=== PATIENT | male | born 1940 | race Caucasian/White ===

== ENCOUNTER → 2016-11-16 | Outpatient (CLI) | payer BC ==
[~2016-11-16] MED LIST: ALLO100T PO; CARV12.52 PO; CARV25TA2 PO; ERGO1CAP35 PO; FURO40TA3 PO; LISI-461 PO; PSYL55.43 PO; SIMV20TA2 PO; WARF5TAB7 PO
[2016-11-16 12:06] LABS: HEMATOCRIT 34.6 % (42-52); MEAN CELL VOLUME 92.8 fL (80-100); MEAN CORPUSCULAR HEMOGLOBIN 29.5 pg (25-34); MEAN CORPUSCULAR HGB CONC 31.8 g/dl (32-36); MEAN PLATELET VOLUME 9.9 fL (7.4-10.4); PLATELET COUNT 148 K/uL (130-400); RED BLOOD COUNT 3.73 M/uL (4.7-6.1); WHITE BLOOD COUNT 6.41 K/uL (4.8-10.8)
[2016-11-16 12:34] LABS: URINE PROTIEN/CREAT RATIO 0.5 (0-0.2)
[2016-11-16 12:49] LABS: ALT/SGPT 29 U/L (12-78); AST/SGOT 14 U/L (15-37); BLOOD UREA NITROGEN 71 mg/dl (7-18); BUN/CREATININE RATIO 25.2 (10-20); CALCIUM 9.1 mg/dl (8.5-10.1); CARBON DIOXIDE 23 mmol/L (21-32); CHLORIDE 109 mmol/L (98-107); GLUCOSE 96 mg/dl (70-99); POTASSIUM 4.8 mmol/L (3.5-5.1); SODIUM 139 mmol/L (136-145); URIC ACID 7.1 mg/dl (2.6-7.2)
[2016-11-16 12:51] LABS: ALB/GLOB RATIO 0.8 (0.9-2); ALKALINE PHOSPHATASE 69 U/L (45-117); PHOSPHORUS 3.7 mg/dl (2.5-4.9)
[2016-11-16 13:25] LABS: URINE APPEARANCE TURBID (CLEAR); URINE BILIRUBIN NEG (NEG); URINE COLOR YELLOW; URINE NITRITE POS (NEG); URINE PH 5.5 (4.5-7.5); URINE SPECIFIC GRAVITY 1.014 (1.000-1.030); UROBILINOGEN NEG (NEG)
[2016-11-16 13:28] LABS: MANUAL MICROSCOPIC REQUIRED? NO; REVIEW REQ? NO
== END | disposition home or self-care (01) ==
LOC: C.LAB1850 10:53
PROVIDERS: ATTEND Internal Medicine Nephrology
DX: I42.9 Cardiomyopathy, unspecified (principal); R80.9 Proteinuria, unspecified; E55.9 Vitamin D deficiency, unspecified; N25.81 Secondary hyperparathyroidism of renal origin; N18.4 Chronic kidney disease, stage 4 (severe); I12.9 Hypertensive chronic kidney disease with stage 1 through stage 4 chronic kidney disease, or unspecified chronic kidney disease

== ENCOUNTER → 2016-12-29 | Day surgery (SDC) | payer BC ==
[2016-12-13 12:44] VITALS: Ht 190.5 cm; Wt 147.7 kg
[~2016-12-29] VITALS: Ht 190.5 cm; Wt 147.7 kg
[~2016-12-29] MED LIST changes: -CARV12.52 PO; -ERGO1CAP35 PO; +PROPOFOL IV EMULSION 10 MG/ML 20 ML VIAL IV ONE
--- NOTE | 2016-12-29 13:05 | Endo History and Physical ---
History & Physical Date of Service: Dec 29, 2016. Chief Complaint: History of rectal CA Referring Physician: Ezra Luis History of Present Illness For colonoscopy Past Surgical History Hx Cardiac Surgery: No Hx Internal Defibrillator: No Hx Pacemaker: No Hx Abdominal Surgery: Yes (COLORECTAL RESECTION WITH COLOSTOMY (2007); COLOSTOMY REVERSAL) Hx Post-Op Nausea and Vomiting: No Hx Cancer Surgery: Yes (COLORECTAL RESECTION (2007); LLL LUNG LOBECTOMY (2009)) Hx Thoracic Surgery: No Hx Orthopedic: No Hx Urinary Tract Surgery: Yes (CYSTOSCOPY) Family History None Social History Smoking Status: Never Smoker Hx Substance Use: No Hx Alcohol Use: Yes (Ocassionally) Allergies Coded Allergies: Ketamine (Unverified Allergy, Intermediate, A Fib, 12/29/16) Iodinated Diagnostic Agents (Verified Adverse Reaction, Severe, DECREASED RENAL FUNCTION, 12/13/16) Current Medications Reported Home Medications Medications Dose Route/Sig Max Daily Dose Days Date Category Dose Instructions Coreg (Carvedilol) 25 Mg Tab 25 Mg PO BID 12/13/16 Reported Lisinopril 10 Mg Tab 1 Tab PO BID 08/10/15 Reported Metamucil Powder (Psyllium Hydrophilic Mucilloid) Powd 1 Pack PO DAILY 07/08/13 Reported Zyloprim (Allopurinol) 100 Mg Tab 150 Mg PO QAM 03/28/13 Reported Jantoven (Warfarin Sodium) 5 Mg Tab 5 Mg PO DAILY UD 03/28/13 Reported HOLD 5 DAYS PRIOR Lasix (Furosemide) 40 Mg Tab 60 Mg PO QAM 03/28/13 Reported Zocor (Simvastatin) 20 Mg Tab 20 Mg PO HS 04/13/09 Reported Vital Signs Weight (Kilograms): 147.73 Height (Feet): 6 Height (Inches): 3 Date Time Temp Pulse Resp B/P (MAP) Pulse Ox O2 Delivery O2 Flow Rate FiO2 12/29/16 12:26 36.4 59 16 153/60 (91) 98 Room Air Physical Exam General Appearance: + obese Respiratory/Chest: Respiratory effort: pertinent finding (LLL lobectomy) Cardiovascular: Heart Auscultation: RRR Abdomen: Inspection & Palpation: soft (rectal cancer for colonoscopy) Assessment and Plan rectal cancer for colonoscopy
--- NOTE | 2016-12-29 13:34 | Discharge Instructions ---
Endoscopy Patient Instructions Date / Procedure(s) Performed Dec 29, 2016. Colonoscopy Allergy Information Coded Allergies: Ketamine (Unverified Allergy, Intermediate, A Fib, 12/29/16) Iodinated Diagnostic Agents (Verified Adverse Reaction, Severe, DECREASED RENAL FUNCTION, 12/13/16) Discharge Date / Findings Dec 29, 2016. polyps, diverticulosis Medication Instructions Stopped Medication(s): Coumadin last 12/23/16 Restart Stopped Medication(s): restart meds Reported Home Medications Medications Dose Route/Sig Max Daily Dose Days Date Category Dose Instructions Coreg (Carvedilol) 25 Mg Tab 25 Mg PO BID 12/13/16 Reported Lisinopril 10 Mg Tab 1 Tab PO BID 08/10/15 Reported Metamucil Powder (Psyllium Hydrophilic Mucilloid) Powd 1 Pack PO DAILY 07/08/13 Reported Zyloprim (Allopurinol) 100 Mg Tab 150 Mg PO QAM 03/28/13 Reported Jantoven (Warfarin Sodium) 5 Mg Tab 5 Mg PO DAILY UD 03/28/13 Reported HOLD 5 DAYS PRIOR Lasix (Furosemide) 40 Mg Tab 60 Mg PO QAM 03/28/13 Reported Zocor (Simvastatin) 20 Mg Tab 20 Mg PO HS 04/13/09 Reported Provider Instructions Activity Restrictions - No exercising or heavy lifting for 24 hours. - Do not drink alcohol the day of the procedure. - Do not drive a car or operate machinery until the day after the procedure. - Do not make any important decisions or sign important papers in 24 hours after the procedure. Following Day: - Return to full activity which may include returning to work/school. Diet Start your diet with liquids and light foods (jello, soup, juice, toast). Then eat your usual diet if not nauseated. Treatment For Common After Affects For mild abdominal pain, bloating, or excessive gas: - Rest - Eat lightly - Lie on right side Follow-Up Information Follow-up with Ezra Luis as scheduled Anesthesia Information What You Should Know You have had a procedure that required some medicine to reduce anxiety and discomfort. This treatment is called moderate sedation. After receiving the treatment, you may be sleepy, but you will be able to breathe on your own. The effects of the treatment may last for several hours. Follow these instructions along with Activity/Diet recommendations noted above: * Do NOT do anything where dizziness or clumsiness would be dangerous. * Rest quietly at home today, then you can be up and about tomorrow. * Have a responsible person stay with you the rest of today. * You may have had an I.V. today. If so, you may take the dressing off later today. Recommendations Call your doctor if: * Trouble breathing * Continuous vomiting for more than 24 hours * Temperature above 101 degrees * Severe abdominal pain or bloating * Pain not relieved by pain medicine ordered * There is increased drainage or redness from any incision * A large amount of rectal bleeding greater than 2-3 tablespoons. (If you had a polyp/s removed or have hemorrhoids, a small amount of blood - from the rectum is to be expected.) * You have any unanswered questions or concerns. IN THE EVENT OF A SERIOUS EMERGENCY, GO TO THE NEAREST EMERGENCY ROOM Your discharge instructions were prepared by provider Aaron Coleman. Patient Instructions Signature Page Wesley Hitchcock Patient (or Guardian) Signature/Date: I have read and understand the instructions given to me by my caregivers. Caregiver/RN/Doctor Signature/Date: The above-named patient and/or guardian has received patient instructions on this date. + Original Patient Signature Page (only) stays with chart. Please make copy for patient.
--- NOTE | 2016-12-29 13:41 | GI REPORT ---
Procedure Date: 12/29/2016 12:40 PM Procedure: Colonoscopy Indications: Personal history of malignant rectal neoplasm, Personal history of colonic polyps Medicines: Propofol total dose 120 mg IV Complications: No immediate complications. Estimated Blood Loss: Estimated blood loss: none. Procedure: Pre-Anesthesia Assessment: - Prior to the procedure, a History and Physical was performed, and patient medications, allergies and sensitivities were reviewed. The patient's tolerance of previous anesthesia was reviewed. - The risks and benefits of the procedure and the sedation options and risks were discussed with the patient. All questions were answered and informed consent was obtained. After I obtained informed consent, the scope was passed under direct vision. Throughout the procedure, the patient's blood pressure, pulse, and oxygen saturations were monitored continuously. The scope was introduced through the anus and advanced to the cecum, identified by appendiceal orifice and ileocecal valve. The colonoscopy was performed without difficulty. The patient tolerated the procedure well. The quality of the bowel preparation was good. Findings: Multiple diverticula were found in the sigmoid colon and in the ascending colon. There was evidence of a prior end-to-end colo-colonic anastomosis in the mid rectum. This was patent and was characterized by healthy appearing mucosa. The anastomosis was traversed. A 3 mm polyp was found in the cecum. The polyp was sessile. The polyp was removed with a cold biopsy forceps. Resection and retrieval were complete. Estimated blood loss: none. A 12 mm polyp was found in the ascending colon. The polyp was sessile. The polyp was removed with a hot snare. Resection and retrieval were complete. To prevent bleeding after the polypectomy, one hemostatic clip was successfully placed (MR conditional). There was no bleeding during, and at the end, of the procedure. Impression: - Diverticulosis in the sigmoid colon and in the ascending colon. - Patent end-to-end colo-colonic anastomosis, characterized by healthy appearing mucosa. - One 3 mm polyp in the cecum, removed with a cold biopsy forceps. Resected and retrieved. - One 12 mm polyp in the ascending colon, removed with a hot snare. Resected and retrieved. Clip (MR conditional) was placed. Recommendation: - Discharge patient to home (ambulatory). - Continue present medications. - Await pathology results. - Return to primary care physician PRN. Aaron Coleman M.D. Aaron Coleman MD 12/29/2016 1:41:18 PM This report has been signed electronically. Note Initiated On: 12/29/2016 12:40 PM I attest to the content of the Intraoperative Record and orders documented therein, exceptions below
[2016-12-29 14:02] VITALS: BP 117/61; PULSE 48; O2SAT 99
--- NOTE | 2016-12-29 14:42 | Anesthesiology Progress Note ---
Anesthesia Post Op Note Date & Time Dec 29, 2016 at 14:42 Vital Signs Pain Intensity: 0 Vital Signs Past 12 Hours Date Time Temp Pulse Resp B/P (MAP) Pulse Ox O2 Delivery O2 Flow Rate FiO2 12/29/16 14:02 48 18 117/61 (79) 99 Room Air 12/29/16 13:47 52 18 116/57 (76) 96 Room Air 12/29/16 13:32 61 18 146/65 (92) 96 Room Air 12/29/16 12:26 36.4 59 16 153/60 (91) 98 Room Air Notes Mental Status: alert / awake / arousable, participated in evaluation Pt Amnestic to Procedure: Yes Nausea / Vomiting: adequately controlled Pain: adequately controlled Airway Patency, RR, SpO2: stable & adequate BP & HR: stable & adequate Hydration State: stable & adequate Anesthetic Complications: no major complications apparent
== END | disposition home or self-care (01) ==
LOC: C.GI 12:03
PROVIDERS: ATTEND Internal Medicine Gastroenterology
DX: D12.0 Benign neoplasm of cecum (principal); D12.2 Benign neoplasm of ascending colon; K57.30 Diverticulosis of large intestine without perforation or abscess without bleeding; Z85.048 Personal history of other malignant neoplasm of rectum, rectosigmoid junction, and anus